=== PATIENT | female | born 1940 | race Caucasian/White ===

== ENCOUNTER 2016-06-18 15:33 | Emergency (ER) | payer MEDICARE ==
[2016-06-18] MEDS ORDERED: Sodium Chloride 0.9% 1000 ML 1,000 ML IV STA (16:29)
--- NOTE | 2016-06-18 16:31 | ERPHSYRPT ---
- History of Present Illness Time Seen by Provider: 06/18/16 16:20 Source: patient Exam Limitations: no limitations Patient Subjective Stated Complaint: dizziness since tuesday with near syncopal episode today Triage Nursing Assessment: states she gets dizzy while ambulating since tuesday but today she 'almost passed out while walking' denies recent fall or injury. denies pain, or headache. dizziness only while ambulating not with chnage of position. on arrival pt skin warm and dry. a/o x3. denies dizziness during ortho bp Allergies/Adverse Reactions: No Known Drug Allergies Allergy (Unverified 06/18/16 16:04) Home Medications: Amlodipine Besylate 10 mg [Norvasc 10 MG] 10 mg PO HS 06/18/16 [History] Esomeprazole Magnesium [Nexium] 40 mg PO HS 06/18/16 [History] Famotidine 20 mg [Pepcid 20 MG] 20 mg PO HS 06/18/16 [History] Gabapentin 100 mg PO DAILY 06/18/16 [History] Hydrochlorothiazide 25 mg [hydroDIURIL 25 MG] 25 mg PO HS 06/18/16 [ History] Losartan Potassium 25 mg PO DAILY 06/18/16 [History] Pravastatin Sodium 10 mg PO HS 06/18/16 [History] Hx Tetanus, Diphtheria Vaccination/Date Given: Yes Hx Influenza Vaccination/Date Given: No Hx Pneumococcal Vaccination/Date Given: No Immunizations Up to Date: Yes - Past Medical History Pertinent Past Medical History: Yes Cardiac History: High Cholesterol, Hypertension Psycho-Social History: Depression - Past Surgical History Past Surgical History: Yes Female Surgical History: Hysterectomy - Social History Smoking Status: Never smoker Exposure to second hand smoke: No Drug Use: none Patient Lives Alone: No - Nursing Vital Signs Nursing Vital Signs: Initial Vital Signs Temperature 98.2 F Temperature Source Oral Pulse Rate 80 Respiratory Rate 16 Blood Pressure 144/78 Pain Intensity 0 - Physical Exam SpO2: 95 Oxygen Delivery: Room Air Ordered Tests: Active Orders 24 hr Category Date Time Status EKG-ER Only STAT Care 06/18/16 16:25 Active Orthostatic Vital Signs STAT Care 06/18/16 15:43 Completed Orthostatic Vital Signs STAT Care 06/18/16 16:25 Completed Orthostatic Vital Signs STAT Care 06/18/16 16:55 Active CHEST 2 VIEWS (PA AND LAT) Stat Exams 06/18/16 16:26 Taken HEAD WITHOUT CONTRAST [CT] Stat Exams 06/18/16 16:26 Taken CBCD [CBC W DIFF] Stat Lab 06/18/16 16:50 Completed CMP Stat Lab 06/18/16 16:50 Completed TROPONIN Stat Lab 06/18/16 16:50 Completed UA W/RFX UR CULTURE Stat Lab 06/18/16 17:00 Completed Medication Summary Discontinued Medications Generic Name Dose Route Start Last Admin Trade Name Amber PRN Reason Stop Dose Admin Sodium Chloride 1,000 mls @ 999 mls/hr 06/18/16 16:29 06/18/16 17:24 Sodium Chloride 0.9% 1000 Ml IV 06/18/16 17:29 999 mls/hr .Q1H1M STA Administration Sodium Chloride Confirm 06/18/16 17:21 Sodium Chloride 0.9% 1000 Ml Administered 06/18/16 17:22 Dose 1,000 mls @ ud .ROUTE .STK-MED ONE Lab/Rad Data: Laboratory Result Diagrams 06/18/16 16:50 06/18/16 16:50 Laboratory Results 06/18/16 06/18/16 06/18/16 Range/Units 17:00 16:50 16:50 WBC (4.0-10.5) K/mm3 RBC (4.1-5.4) M/mm3 Hgb (12.0-16.0) gm/dl Hct (35-47) % MCV (78-100) fl MCH (26-32) pg MCHC (32-36) g/dl RDW (11.5-14.0) % Plt Count (150-450) K/mm3 MPV (6-9.5) fl Gran % (36.0-66.0) % Lymphocytes % (24.0-44.0) % Monocytes % (0.0-12.0) % Eosinophils % (0.00-5.0) % Basophils % (0.0-0.4) % Basophils # (0-0.4) Sodium 143 (136-145) mEq/L Potassium 3.7 (3.5-5.1) mEq/L Chloride 104 (98-107) mEq/L Carbon Dioxide 29.6 (21-32) mEq/L Anion Gap 13.3 (5-15) MEQ/L BUN 22 H (9-20) mg/dL Creatinine 0.85 (0.55-1.30) mg/dl Estimated GFR > 60 ML/MIN Glucose 110 (70-110) MG/DL Calcium 9.3 (8.5-10.1) mg/dL Total Bilirubin 0.4 (0.2-1.0) mg/dL AST 19 (15-37) U/L ALT 21 (12-78) U/L Alkaline Phosphatase 76 (46-116) U/L Troponin I < 0.017 (0.000-0.056) ng/ml Serum Total Protein 8.0 (6.4-8.2) gm/dL Albumin 3.9 (3.4-5.0) g/dL Ur Collection Type CCMS Urine Color YELLOW (YELLOW) Urine Appearance CLEAR (CLEAR) Urine pH 7.0 (5-6) Ur Specific [place] 1.015 (1.005-1.025) Urine Protein NEGATIVE (Negative) Urine Glucose (UA) NEGATIVE (NEGATIVE) mg/dL Urine Ketones NEGATIVE (NEGATIVE) Urine Nitrite NEGATIVE (NEGATIVE) Urine Bilirubin NEGATIVE (NEGATIVE) Urine Urobilinogen 0.2 (0-1) mg/dL Urine WBC (Auto) NEGATIVE (NEGATIVE) Urine RBC (Auto) NEGATIVE (0-5) Forest/ul Specimen Received 06-18-16 1705 06/18/16 Range/Units 16:50 WBC 7.3 (4.0-10.5) K/mm3 RBC 4.90 (4.1-5.4) M/mm3 Hgb 14.3 (12.0-16.0) gm/dl Hct 44.4 (35-47) % MCV 90.6 (78-100) fl MCH 29.2 (26-32) pg MCHC 32.2 (32-36) g/dl RDW 13.2 (11.5-14.0) % Plt Count 218 (150-450) K/mm3 MPV 12.9 H (6-9.5) fl Gran % 74.0 H (36.0-66.0) % Lymphocytes % 17.1 L (24.0-44.0) % Monocytes % 7.5 (0.0-12.0) % Eosinophils % 1.1 (0.00-5.0) % Basophils % 0.3 (0.0-0.4) % Basophils # 0.02 (0-0.4) Sodium (136-145) mEq/L Potassium (3.5-5.1) mEq/L Chloride (98-107) mEq/L Carbon Dioxide (21-32) mEq/L Anion Gap (5-15) MEQ/L BUN (9-20) mg/dL Creatinine (0.55-1.30) mg/dl Estimated GFR ML/MIN Glucose (70-110) MG/DL Calcium (8.5-10.1) mg/dL Total Bilirubin (0.2-1.0) mg/dL AST (15-37) U/L ALT (12-78) U/L Alkaline Phosphatase (46-116) U/L Troponin I (0.000-0.056) ng/ml Serum Total Protein (6.4-8.2) gm/dL Albumin (3.4-5.0) g/dL Ur Collection Type Urine Color (YELLOW) Urine Appearance (CLEAR) Urine pH (5-6) Ur Specific [place] (1.005-1.025) Urine Protein (Negative) Urine Glucose (UA) (NEGATIVE) mg/dL Urine Ketones (NEGATIVE) Urine Nitrite (NEGATIVE) Urine Bilirubin (NEGATIVE) Urine Urobilinogen (0-1) mg/dL Urine WBC (Auto) (NEGATIVE) Urine RBC (Auto) (0-5) Forest/ul Specimen Received - Progress Progress: improved Progress Note: 06/18/16 18:37 Pt feels better after receiving NS fluids. The CT scan head and CXR are within normal limits. The rest of the labs, including troponin and UA are also within normal limits. Pt will be d/c home with a diagnosis of dizziness secondary to dehydration. - Departure Time of Disposition: 18:38 Departure Disposition: Home Clinical Impression: Dizziness, Dehydration Condition: Stable Critical Care Time: No Instructions: Vertigo, Dehydration -- Adult Additional Instructions: Return to the ER if you should have worsening dizziness, any chest pain, shortness of breath, palpitations, abdominal pain, nausea or vomiting.
[2016-06-18 16:59] LABS: BASOPHIL % 0.3 % (0.0-0.4); Eosinophil % 1.1 % (0.00-5.0); Lymphocytes % 17.1 % (24.0-44.0); Mean Cell Volume 90.6 fl (78-100); Mean Corpuscular Hemoglobin 29.2 pg (26-32); Mean Platelet Volume 12.9 fl (6-9.5); Monocytes % 7.5 % (0.0-12.0); Platelet Count 218 K/mm3 (150-450); Red Cell Distribution Width 13.2 % (11.5-14.0); White Blood Count 7.3 K/mm3 (4.0-10.5)
[2016-06-18 17:14] LABS: Collection Type CCMS
[2016-06-18 17:15] LABS: ADD URINE CULTURE? NO (NO); COMPLETE URINE MICROSCOPIC? NO
[2016-06-18] MEDS ORDERED: Sodium Chloride 0.9% 1000 ML 1,000 ML ONE (17:21)
[2016-06-18 17:26] LABS: ALBUMIN 3.9 g/dL (3.4-5.0); ALKALINE PHOSPHATASE 76 U/L (46-116); ANION GAP 13.3 MEQ/L (5-15); BILIRUBIN,TOTAL 0.4 mg/dL (0.2-1.0); BLOOD UREA NITROGEN 22 mg/dL (9-20); CHLORIDE 104 mEq/L (98-107); Carbon Dioxide 29.6 mEq/L (21-32); Glucose 110 MG/DL (70-110); Potassium 3.7 mEq/L (3.5-5.1); SGOT/AST 19 U/L (15-37); SGPT/ALT 21 U/L (12-78); SODIUM 143 mEq/L (136-145)
[2016-06-18] MEDS ORDERED: Ear Wax Drops OT ONE (18:41)
[2016-06-18 18:59] VITALS: O2SAT 93
[2016-06-18 19:33] VITALS: BP 154/94; PULSE 83
--- NOTE | 2016-06-18 22:37 | XRAY ---
Indication: Dizziness and confusion. Comparison: None PA/lateral chest clear. Heart is not enlarged. Vascularity normal. Bony thorax intact with mild osteopenia and degenerative changes. Impression: Nonacute chest.
--- NOTE | 2016-06-18 22:37 | XRAY ---
Indication: Dizziness and confusion. Multiple contiguous axial images obtained through the head without contrast. Comparison: None Normal-appearing brain parenchyma, ventricles, and bony calvarium. Visualized paranasal sinuses and mastoid air cells are pneumatized and clear. Impression: Normal CT head without contrast exam. Comment: Preliminary degradation was made by [facility]. No discrepancy. CTDI is 68.51
== END 2016-06-18 19:34 | disposition home or self-care (01) ==
LOC: ED 15:33
DX: R42 Dizziness and giddiness (principal); E86.0 Dehydration; E78.00 Pure hypercholesterolemia, unspecified; I10 Essential (primary) hypertension; Z79.899 Other long term (current) drug therapy
CPT/HCPCS: 36415; 70450; 71020; 80053; 81000; 84484; 85025; 93005; 96360; 96361; 99283

== ENCOUNTER 2016-08-02 10:21 | Emergency (ER) | payer MEDICARE ==
[2016-08-02 11:03] LABS: BASOPHIL % 0.8 % (0.0-0.4); Eosinophil % 1.8 % (0.00-5.0); Granulocytes % 62.3 % (36.0-66.0); Lymphocytes % 23.7 % (24.0-44.0); Mean Cell Volume 90.7 fl (78-100); Mean Corpuscular Hemoglobin 29.3 pg (26-32); Monocytes % 11.4 % (0.0-12.0); Platelet Count 187 K/mm3 (150-450); Red Blood Count 4.64 M/mm3 (4.1-5.4); Red Cell Distribution Width 13.1 % (11.5-14.0)
[2016-08-02 11:21] LABS: INR 0.99 (0.8-3.0); PROTIME 11.1 SECONDS (9.95-12.35)
--- NOTE | 2016-08-02 11:23 | ERPHSYRPT ---
- History of Present Illness Time Seen by Provider: 08/02/16 10:35 Source: patient Exam Limitations: clinical condition Patient Subjective Stated Complaint: pt is worried about a blood clot to left hand. pt woke with morning with a hard knot to top of hand, she states she had an iv there 3 months ago. no injury to hand Triage Nursing Assessment: pt has contusion to top of right hand, no pain, resp easy, skin w/d/pink. alert. no sob, able to moved hand well Physician History: PATIENT WITH A HISTORY OF HYPERTENSION AWAKENED FROM SLEEP AND NOTICED SWELLING WITH BRUISING OVER BACK OF LEFT HAND. UNSURE OF INJURY OR TRAUMA. HAS PAIN UPON PALPATION OF HAND SWELLING. Occurred: this morning Method of Injury: unknown Severity of Pain-Max: none Severity of Pain-Current: none Extremities Pain Location: hand: left Modifying Factors: Improves With: nothing Associated Symptoms: none Allergies/Adverse Reactions: No Known Drug Allergies Allergy (Verified 08/02/16 10:29) Home Medications: Amlodipine Besylate 10 mg [Norvasc 10 MG] 10 mg PO HS 06/18/16 [History] Esomeprazole Magnesium [Nexium] 40 mg PO HS 06/18/16 [History] Famotidine 20 mg [Pepcid 20 MG] 20 mg PO HS 06/18/16 [History] Gabapentin 100 mg PO DAILY 06/18/16 [History] Hydrochlorothiazide 25 mg [hydroDIURIL 25 MG] 25 mg PO HS 06/18/16 [ History] Losartan Potassium 25 mg PO DAILY 06/18/16 [History] Pravastatin Sodium 10 mg PO HS 06/18/16 [History] Aspirin [Aspir-Low] 81 mg DAILY 08/02/16 [History] Citalopram Hydrobromide 20 mg* [ceLEXa 20 MG] 20 mg DAILY 08/02/16 [History] Hx Tetanus, Diphtheria Vaccination/Date Given: Yes Hx Influenza Vaccination/Date Given: No Hx Pneumococcal Vaccination/Date Given: No Immunizations Up to Date: Yes - Review of Systems Constitutional: No Fever, No Chills Eyes: No Symptoms Ears, Nose, & Throat: No Symptoms Respiratory: No Cough, No Dyspnea Cardiac: No Chest Pain, No Edema, No Syncope Abdominal/Gastrointestinal: No Abdominal Pain, No Nausea, No Vomiting, No Diarrhea Genitourinary Symptoms: No Dysuria Musculoskeletal: Other (SWELLING WITH BRUISING ), No Back Pain, No Neck Pain Skin: No Rash Neurological: No Dizziness, No Focal Weakness, No Sensory Changes Psychological: No Symptoms Endocrine: No Symptoms All Other Systems: Reviewed and Negative - Past Medical History Pertinent Past Medical History: Yes Cardiac History: High Cholesterol, Hypertension Psycho-Social History: Depression - Past Surgical History Past Surgical History: Yes Female Surgical History: Hysterectomy - Social History Smoking Status: Former smoker Exposure to second hand smoke: No Drug Use: none Patient Lives Alone: No - Female History Hx Last Menstrual Period: post - Nursing Vital Signs Nursing Vital Signs: Initial Vital Signs Temperature 97.7 F Temperature Source Oral Pulse Rate 83 Respiratory Rate 16 Blood Pressure [] 153/65 Pain Intensity 0 - Physical Exam General Appearance: alert Eyes, Ears, Nose, Throat Exam: moist mucous membranes Neck Exam: non-tender, supple Cardiovascular/Respiratory Exam: chest non-tender, normal breath sounds, regular rate/rhythm, no respiratory distress Abdominal Exam: non-tender, No guarding Back Exam: normal inspection, No vertebral tenderness Hand Exam: ecchymosis (LEFT RADIAL PULSE), swelling (WITH MINIMAL TENDERNESS, SWELLING 2CM X 1.5CM WITH FIRM ECCHYMOSIS) Neuro/Tendon Exam: normal sensation, normal motor functions Mental Status Exam: alert, oriented x 3, cooperative Skin Exam: normal color, warm, dry SpO2 Interpretation: normal SpO2: 95 Oxygen Delivery: Room Air - Radiology Exams Left Hand X-ray Interpretation: Discussed w/ radiologist, No Fracture (MILD OSTEOPENIA, MINIMAL DEGENRATIVE CHANGE OF ALL IP JOINTS) Ordered Tests: Active Orders 24 hr Category Date Time Status HAND (MINIMUM 3 VIEWS) Stat Exams 08/02/16 10:46 Completed CBC W DIFF Stat Lab 08/02/16 10:59 Completed PT INR [PROTIME WITH INR] Stat Lab 08/02/16 10:59 Completed Lab/Rad Data: Laboratory Result Diagrams 08/02/16 10:59 Laboratory Results 08/02/16 08/02/16 Range/Units 10:59 10:59 WBC 5.0 (4.0-10.5) K/mm3 RBC 4.64 (4.1-5.4) M/mm3 Hgb 13.6 (12.0-16.0) gm/dl Hct 42.1 (35-47) % MCV 90.7 (78-100) fl MCH 29.3 (26-32) pg MCHC 32.3 (32-36) g/dl RDW 13.1 (11.5-14.0) % Plt Count 187 (150-450) K/mm3 MPV 12.0 H (6-9.5) fl Gran % 62.3 (36.0-66.0) % Lymphocytes % 23.7 L (24.0-44.0) % Monocytes % 11.4 (0.0-12.0) % Eosinophils % 1.8 (0.00-5.0) % Basophils % 0.8 (0.0-0.4) % Basophils # 0.04 (0-0.4) INR 0.99 (0.8-3.0) - Progress Progress Note: 08/02/16 11:45 APPLIED ICE OVER HAND SWELLING Counseled pt/family regarding: lab results, diagnosis, need for follow-up, rad results - Departure Time of Disposition: 11:55 Departure Disposition: Home Clinical Impression: Contusion of left hand Condition: Stable Critical Care Time: No Additional Instructions: CONTINUE TO APPLY ICE OVER HAND SWELLING EVERY 4 HOURS, 30 MINUTES FOR A DURATION OF 48 HOURS. TYLENOL OR MOTRIN NEEDED FOR PAIN. CONSULT YOUR FAMILY PHYSICIAN FOR FOLLOWUP IN 1 WEEK.
--- NOTE | 2016-08-02 11:26 | XRAY ---
Indication: Bruising and swelling. No known injury. Comparison: None 3 views of the left hand demonstrates mild osteopenia, minimal degenerative changes of all IP joints, mild degenerative changes of the first metacarpal multangular articulation, and radiocarpal degenerative joint space narrowing. No other bony, articular, or soft tissue abnormalities. Impression: Nonacute left hand with chronic features.
[2016-08-02 12:03] VITALS: PULSE 78
[2016-08-02 12:23] VITALS: BP 165/92; O2SAT 98
== END 2016-08-02 12:23 | disposition home or self-care (01) ==
LOC: ED 10:21
DX: S60.222A Contusion of left hand, initial encounter (principal); M25.542 Pain in joints of left hand; E78.00 Pure hypercholesterolemia, unspecified; I10 Essential (primary) hypertension
CPT/HCPCS: 36415; 73130; 85025; 85610; 99283

== ENCOUNTER 2023-07-11 07:57 | Emergency (ER) | payer MEDICARE ==
[2023-07-11 08:17] VITALS: TEMP 98.5
--- NOTE | 2023-07-11 08:29 | ERPHSYRPT ---
- History of Present Illness Time Seen by Provider: 07/11/23 08:01 Source: patient Exam Limitations: no limitations Patient Subjective Stated Complaint: Pt fell on tile floor and injured her forehead causing a lacertion and a hematoma below it, camron knees bruised with an abrasion to the right knee Triage Nursing Assessment: Pt brought to the ER by her daughter, hypertensive, rates pain as 4/10, pulses normal, laceration to upper right forehead measuring 2.6cm and a second one measuring 0.3cm, denies LOC, denies N&V, thinks that she stood up too fast causing her to fall, camron knee bruising with an abrasion to the right knee, doesn't appear to be on any distress Physician History: Patient is here with a head injury.Patient states that she was sleeping in her recliner as she usually does last night. States that this morning she got up from her recliner she stood up. She states that she felt like she stood up too fast and got dizzy. Patient then fell and hit her head. She states that this usually does not happen. No other injuries. She is Only on a baby aspirin. She is unsure of her tetanus status.She actively has no chest pain, shortness of breath, nausea, vomiting, fever, chills. Allergies/Adverse Reactions: No Known Drug Allergies Allergy (Verified 07/11/23 08:18) Home Medications: Amlodipine Besylate 10 mg [Norvasc 10 MG] 10 mg PO HS 06/18/16 [History] Esomeprazole Magnesium [Nexium] 40 mg PO HS 06/18/16 [History] Famotidine 20 mg [Pepcid 20 MG] 20 mg PO HS 06/18/16 [History] Gabapentin 100 mg PO DAILY 06/18/16 [History] Hydrochlorothiazide 25 mg [hydroDIURIL 25 MG] 25 mg PO HS 06/18/16 [History] Losartan Potassium 25 mg PO DAILY 06/18/16 [History] Pravastatin Sodium 10 mg PO HS 06/18/16 [History] Aspirin [Aspir-Low] 81 mg DAILY 08/02/16 [History] Citalopram Hydrobromide 20 mg* [ceLEXa 20 MG] 20 mg DAILY 08/02/16 [History] Hx Tetanus, Diphtheria Vaccination/Date Given: No Hx Influenza Vaccination/Date Given: No Hx Pneumococcal Vaccination/Date Given: No Travel Risk - International Travel Have you traveled outside of the country in past 3 weeks: No - Coronavirus Screening Are you exhibiting any of the following symptoms?: No Close contact with a COVID-19 positive Pt in past 14-21 Days: No - Vaccine Status Have you recieved a Covid-19 vaccination: Yes [employer]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 - Vaccination Dates Date of 2cond Vaccination (if applicable): 2011 - Review of Systems Constitutional: No Fever, No Chills Eyes: No Symptoms Ears, Nose, & Throat: No Symptoms Respiratory: No Cough, No Dyspnea Cardiac: No Chest Pain, No Edema, No Syncope Abdominal/Gastrointestinal: No Abdominal Pain, No Nausea, No Vomiting, No Diarrhea Genitourinary Symptoms: No Dysuria Musculoskeletal: No Back Pain, No Neck Pain Skin: No Rash Neurological: No Dizziness, No Focal Weakness, No Sensory Changes Psychological: No Symptoms Endocrine: No Symptoms All Other Systems: Reviewed and Negative - Past Medical History Pertinent Past Medical History: Yes Cardiac History: High Cholesterol, Hypertension Psycho-Social History: Depression - Past Surgical History Past Surgical History: Yes Female Surgical History: Hysterectomy - Social History Smoking Status: Former smoker Exposure to second hand smoke: No Drug Use: none Patient Lives Alone: No - Nursing Vital Signs Nursing Vital Signs: Initial Vital Signs Temperature 98.5 F 07/11/23 08:04 Pulse Rate 72 07/11/23 08:04 Blood Pressure 202/113 07/11/23 08:04 O2 Sat by Pulse Oximetry 95 07/11/23 08:04 Pain Scale Pain Intensity 4 - Physical Exam SpO2: 95 Comments: 07/11/23 08:55 Physical Exam Vitals signsand nursing notereviewed. Constitutional: Appearance: She is well-developed. HENT: Head: Normocephalicand 5 cm head laceration over forehead Eyes: Conjunctiva/sclera: Conjunctivae normal. Neck: Musculoskeletal: Normal range of motion. Trachea: No tracheal deviation. Cardiovascular: Rate and Rhythm: Normal rate. Pulmonary: Effort: Pulmonary effort is normal. Norespiratory distress. Abdominal: Palpations: Abdomen is soft. Musculoskeletal: General: No deformity. Skin: General: Skin is warmand dry. Neurological: Mental Status: She is alertand oriented to person, place, and time. Psychiatric: Behavior: Behaviornormal. Procedures - Laceration/Wound Repair Head Time of Procedure: 10:12 Wound Location: forehead Wound Length (cm): 5 Wound's Depth, Shape: linear Wound Explored: clean Irrigated: Yes Hibiclens Prep: Yes Anesthesia: 1% lidocaine w/ Epi Volume Anesthetic (ccs): 5 Wound Repaired With: sutures Suture Size/Type: 4-0, prolene Number of Sutures: 5 Layer Closure?: No Sterile Dressing Applied?: Yes Splint Applied?: No Sling Applied?: No - Course Nursing assessment & vital signs reviewed: Yes EKG Interpreted by Me: Sinus Rhythm Ordered Tests: Active Orders 24 hr Category Date Time Status Filer Metal Patterns STAT Care 07/11/23 08:20 Active EKG-ER Only STAT Care 07/11/23 08:20 Active IV Insertion STAT Care 07/11/23 08:20 Active CHEST 1 VIEW (PORTABLE) Stat Exams 07/11/23 08:21 Completed HEAD WITHOUT CONTRAST [CT] Stat Exams 07/11/23 08:21 Completed CBC W DIFF Stat Lab 07/11/23 08:35 Completed CMP Stat Lab 07/11/23 08:35 Completed TROPONIN Q4H Lab 07/11/23 08:35 Completed TROPONIN Q4H Lab 07/11/23 12:30 Ordered TROPONIN Q4H Lab 07/11/23 16:30 Ordered Medication Summary Discontinued Medications Generic Name Dose Route Start Last Admin Trade Name Freq PRN Reason Stop Dose Admin Diphtheria/Tetanus/Acell Pertussis 0.5 ml 07/11/23 10:03 Tdap --Diph,Pertuss(Acell),Tet Vac/Pf 0.5 Ml Vial IM 07/11/23 10:04 .ONCE ONE Diphtheria/Tetanus/Acell Pertussis Confirm 07/11/23 10:04 Tdap --Diph,Pertuss(Acell),Tet Vac/Pf 0.5 Ml Vial Administered 07/11/23 10:05 Dose 0.5 ml IM .STK-MED ONE Lidocaine/Epinephrine 10 ml 07/11/23 08:29 07/11/23 08:36 Lidocaine Hcl/Epinephrine 1% 20 Ml IJ 07/11/23 08:30 10 ml STAT ONE Administration Lidocaine/Epinephrine Confirm 07/11/23 08:35 Lidocaine Hcl/Epinephrine 1% 20 Ml Administered 02/05/24 08:36 Dose 10 ml .ROUTE .[facility] ONE Lab/Rad Data: Laboratory Result Diagrams 07/11/23 08:35 07/11/23 08:35 Laboratory Results 07/11/23 07/11/23 07/11/23 Range/Units 08:35 08:35 08:35 WBC 5.8 (4.0-10.5) x10^3/uL RBC 4.57 (4.1-5.4) x10^6/uL Hgb 13.7 (12.0-16.0) g/dL Hct 43.2 (35-47) % MCV 94.5 (78-100) fL MCH 30.0 (26-32) pg MCHC 31.7 L (32-36) g/dL RDW 12.5 (11.5-14.0) % Plt Count 153 (150-450) x10^3/uL MPV 12.8 H (7.5-11.0) fL Gran % 72.5 H (36.0-66.0) % Immature Gran % (Auto) 0.2 (0.00-0.4) % Nucleat RBC Rel Count 0.0 (0.00-0.1) % Eos # (Auto) 0.18 (0-0.5) x10^3/uL Immature Gran # (Auto) 0.01 (0.00-0.03) x10^3u/L Absolute Lymphs (auto) 1.00 (1.0-4.6) x10^3/uL Absolute Monos (auto) 0.36 (0.0-1.3) x10^3/uL Absolute Nucleated RBC 0.00 (0.00-0.01) x10^3u/L Lymphocytes % 17.3 L (24.0-44.0) % Monocytes % 6.2 (0.0-12.0) % Eosinophils % 3.1 (0.00-5.0) % Basophils % 0.7 (0.0-0.4) % Absolute Granulocytes 4.20 (1.4-6.9) x10^3/uL Basophils # 0.04 (0-0.4) x10^3/uL Sodium 139 (137-145) mmol/L Potassium 4.1 (3.5-5.1) mmol/L Chloride 106 (98-107) mmol/L Carbon Dioxide 29 (22-30) mmol/L Anion Gap 8.1 (5-15) MEQ/L BUN 24 H (7-17) mg/dL Creatinine 0.75 (0.52-1.04) mg/dL Estimated GFR 80.4 ML/MIN Glucose 100 (74-106) mg/dL Calcium 9.0 (8.4-10.2) mg/dL Total Bilirubin 0.70 (0.2-1.3) mg/dL AST 21 (14-36) U/L ALT 15 (0-35) U/L Alkaline Phosphatase 56 (38-126) U/L Troponin I < 0.012 (0.000-0.034) ng/mL Serum Total Protein 6.8 (6.3-8.2) g/dL Albumin 3.7 (3.5-5.0) g/dL - Progress Progress: improved Progress Note: 07/11/23 08:57 Differential Diagnosis includes head bleed, syncope from cardiac event, arrh ythmia,Electrolyte abnormality, low hemoglobin. Will obtain basic labs, head CT, tetanus shot, EKG. EKG shows right bundle branch block, similar to previous EKG. 07/11/23 10:[address] returned negative without head bleed or other acute abnormality. Duration repaired with sutures as above. See procedure note for full details. Patient will need sutures removed in 5 to 7 days. Patient most likely does have a concussion. Typical concussion protocols given to the patient. Follow-up reexam with PCP as above. Patient's EKG and cardiac marker were both negative. Lower suspicion for cardiac event based on story today. However, not impossible. Therefore will need close follow-up with PCP or return here. I did discuss all this with the patient and the patient's daughter. They state their understanding and will follow-up as described. Return here sooner for new or changing symptoms. - Departure Departure Disposition: Home Clinical Impression: Laceration of head, Dizzy Condition: Stable Critical Care Time: No Referrals: ROSE LELBANC DO [Primary Care Provider] - Follow up/PCP as directed Instructions: Concussion, Adult (DC), Head Injury in Adults (DC) Additional Instructions: You will need your sutures removed in 5 to 7 days. See your primary care doctor for concussion reevaluation as well. Return here sooner for new or changing symptoms.
[2023-07-11] MEDS ORDERED: XYLOCAINE 1%/Epi 1:100000 MDV 20 ML ONE (08:35)
[2023-07-11] MEDS: XYLOCAINE 1%/Epi 1:100000 MDV 20 ML IJ ONE (08:36)
[2023-07-11 08:43] LABS: BASOPHIL % 0.7 % (0.0-0.4); Basophil (Absolute #) 0.04 x10^3/uL (0-0.4); Eosinophil % 3.1 % (0.00-5.0); Eosinophil (Absolute #) 0.18 x10^3/uL (0-0.5); Hematocrit 43.2 % (35-47); Hemoglobin 13.7 g/dL (12.0-16.0); IMMATURE GRAN # 0.01 x10^3u/L (0.00-0.03); IMMATURE GRAN % 0.2 % (0.00-0.4); Lymphocytes % 17.3 % (24.0-44.0); Mean Cell Volume 94.5 fL (78-100); Mean Corpuscular Hgb Concent. 31.7 g/dL (32-36); Mean Platelet Volume 12.8 fL (7.5-11.0); Monocyte (Absolute #) 0.36 x10^3/uL (0.0-1.3); Monocytes % 6.2 % (0.0-12.0); Neutrophil % 72.5 % (36.0-66.0); Platelet Count 153 x10^3/uL (150-450); Red Blood Count 4.57 x10^6/uL (4.1-5.4); Red Cell Distribution Width 12.5 % (11.5-14.0); White Blood Count 5.8 x10^3/uL (4.0-10.5)
[2023-07-11 08:56] LABS: ALBUMIN 3.7 g/dL (3.5-5.0); BILIRUBIN,TOTAL 0.7 mg/dL (0.2-1.3); Creatinine 1 0.75 mg/dL (0.52-1.04); EST GLOMERULAR FILTRATION RATE 80.4 ML/MIN; Total Protein 6.8 g/dL (6.3-8.2)
[2023-07-11 08:58] LABS: Potassium 4.1 mmol/L (3.5-5.1)
[2023-07-11 08:59] LABS: ANION GAP 8.1 MEQ/L (5-15)
[2023-07-11 09:12] VITALS: PULSE 70; RESP 18
--- NOTE | 2023-07-11 09:14 | XRAY ---
Indication: Status post fall. Comparison: September 30, 2022 Portable chest now enlarged obscuring left lung base. Remaining lungs clear. Bony thorax intact again with osteopenia, degenerative changes, and old right humerus fracture.
--- NOTE | 2023-07-11 09:58 | XRAY ---
Indication: Status post fall. Multiple contiguous axial images obtained through the head without contrast. Comparison: June 18, 2016 There is now age-appropriate global atrophy, mild periventricular degenerative micro-ischemia bilaterally, and remote lacunar infarct right basal ganglia. No acute intracranial hemorrhage, abnormal extra-axial fluid collection, or mass effect. Fourth ventricle is midline without hydrocephalus. New small right frontal scalp hematoma. Bony calvarium intact. Visualized paranasal sinuses and mastoid air cells are clear. Impression: New right frontal scalp hematoma. Otherwise nonacute senile brain with remote lacunar infarct right basal ganglia.
[2023-07-11] MEDS ORDERED: Adacel Vial IM ONE (10:04)
[2023-07-11 10:05] VITALS: O2SAT 95
[2023-07-11] MEDS: Adacel Vial IM ONE (10:12)
[2023-07-11 10:50] VITALS: BP 210/88
== END 2023-07-11 10:52 | disposition home or self-care (01) ==
LOC: ED 07:57
DX: S01.81XA Laceration without foreign body of other part of head, initial encounter (principal); W18.39XA Other fall on same level, initial encounter; R42 Dizziness and giddiness; E78.5 Hyperlipidemia, unspecified; I10 Essential (primary) hypertension; Z79.899 Other long term (current) drug therapy
CPT/HCPCS: 12002; 36000; 36415; 70450; 71045; 80053; 84484; 85025; 90471; 90715; 93005; 93041; 96372; 99284